=== PATIENT | female | born 1995 | race Caucasian/White ===

== ENCOUNTER 2017-03-20 14:34 | Emergency (ER) | payer OTHER ==
[2017-03-20 14:38] VITALS: TEMP 99
[2017-03-20] MEDS ORDERED: ONDANSETRON 4 MG/2 ML VIAL IVP STA (14:53)
[2017-03-20] MEDS ORDERED: HYDROmorphone 1 MG/ML 1 ML SYRINGE IVP STA (14:53)
[2017-03-20] MEDS ORDERED: SODIUM CHLORIDE 0.9% 1,000 ML IV STA ×2 (14:53)
--- NOTE | 2017-03-20 14:55 | ED ---
General Adult HPI - General Chief complaint: Abdominal Pain Stated complaint: right side abd pain Time Seen by Provider: 03/20/17 14:46 Source: patient, RN notes reviewed Mode of arrival: ambulatory Limitations: no limitations - History of Present Illness Initial comments: Patient 21-year-old female who presents emergency room today with chief complaint of increased right upper quadrant pain over the last day. Doesn't that symptoms started last night around 11 PM. Does admit that it as a "sharp" type pain. Currently rates an 8/10 located in the right upper quadrant. Does admit that she's currently on antibiotic of Bactrim for urinary tract infection that she was placed on one week ago. She states she went back to urgent care today and advised her to come here to the emergency room for further evaluation of her gallbladder. Patient denies any other complaints or symptoms at this time. Denies anything that seems to make it better or worse. Patient denies any recent fever, chills, shortness of breath, chest pain, back pain, nausea or vomiting, numbness or tingling, dysuria or hematuria, constipation or diarrhea, headaches or visual changes, or any other complaints. - Related Data Home Medications Medication Instructions Recorded Confirmed Acetaminophen Tab [Tylenol Tab] 650 mg PO Q6H PRN 03/20/17 03/20/17 Etonogestrel [Nexplanon ( 68 mg IM ONCE 03/20/17 03/20/17 control implant)] Sulfamethoxazole/Trimethoprim 1 tab PO BID 03/20/17 03/20/17 [Bactrim DS 800-160 mg] Previous Rx's Medication Instructions Recorded Omeprazole [PriLOSEC] 20 mg PO AC-BRKFST 14 Days 03/20/17 Ondansetron Odt [Zofran ODT] 4 mg PO Q8HR PRN #20 tab 03/20/17 Allergies Allergy/AdvReac Type Severity Reaction Status Date / Time amoxicillin Allergy Rash/Hives Verified 03/20/17 14:47 Penicillins Allergy Rash/Hives Verified 03/20/17 14:47 gluten AdvReac Unknown Verified 03/20/17 14:47 Review of Systems ROS Statement: Those systems with pertinent positive or pertinent negative responses have been documented in the HPI. ROS Other: All systems not noted in ROS Statement are negative. Past Medical History Past Medical History: No Reported History History of Any Multi-Drug Resistant Organisms: None Reported Past Surgical History: Section Past Psychological History: No Psychological Hx Reported Smoking Status: Current every day smoker Past Alcohol Use History: Occasional Past Drug Use History: Marijuana General Exam - General Exam Comments Initial Comments: General: The patient is awake and alert, in no distress, and does not appear acutely ill. Eye: Pupils are equal, round and reactive to light, extra-ocular movements are intact. No nystagmus. There is normal conjunctiva bilaterally. No signs of icterus. Ears, nose, mouth and throat: There are moist mucous membranes and no oral lesions. Neck: The neck is supple, there is no tenderness or JVD. Cardiovascular: There is a regular rate and rhythm. No murmur, rub or gallop is appreciated. Respiratory: Lungs are clear to auscultation, respirations are non-labored, breath sounds are equal. No wheezes, stridor, rales, or rhonchi. Gastrointestinal: Normal appearance of the abdomen. Normal bowel sounds. Abdomen soft on palpation. Patient does have tenderness in right upper quadrant. No rebound tenderness. No guarding. No CVA tenderness. Musculoskeletal: Normal ROM, no tenderness. Strength 5/5. Sensation intact. Pulses equal bilaterally 2+. Neurological: A&O x 3. CN II-XII intact, There are no obvious motor or sensory deficits. Coordination appears grossly intact. Speech is normal. Skin: Skin is warm and dry and no rashes or lesions are noted. Psychiatric: Cooperative, appropriate mood & affect, normal judgment. Limitations: no limitations Course Vital Signs 03/20/17 03/20/17 14:36 16:14 Temperature 99.0 F Pulse Rate 98 94 Respiratory 20 18 Rate Blood Pressure 138/76 134/78 O2 Sat by Pulse 99 99 Oximetry Medical Decision Making - Medical Decision Making Patient reexamined at this time shows no signs of distress. She does admit that she is feeling better after pain medicine. Patient's labs been reviewed shows 11,000 white count. No other sign of infection. Urinalysis clear no sign of infection. Patient has been on antibiotics of Bactrim to cover for UTI recently. Her ultrasound shows no evidence of gallstones. Shows no evidence for acute cholecystitis. Common bile duct was within normal limits. Does show prominent right kidney with no evidence of hydronephrosis. At this time patient will be treated for her symptoms advised follow-up family doctor. She states she's due to the area and will be given family doctor on-call all along with GI. Advised patient that could follow-up for possible HIDA scan of the gallbladder continue to rule it out. Advised return if any symptoms increase or worsen. States understanding and is in agreement. - Lab Data Result diagrams: 03/20/17 15:05 03/20/17 15:05 Lab Results 03/20/17 03/20/17 03/20/17 Range/Units 15:05 15:05 15:05 WBC 11.0 H (3.8-10.6) k/uL RBC 4.26 (3.80-5.40) m/uL Hgb 13.3 (11.4-16.0) gm/dL Hct 40.7 (34.0-46.0) % MCV 95.4 (80.0-100.0) fL MCH 31.2 (25.0-35.0) pg MCHC 32.7 (31.0-37.0) g/dL RDW 12.8 (11.5-15.5) % Plt Count 253 (150-450) k/uL Neutrophils % 67 % Lymphocytes % 24 % Monocytes % 5 % Eosinophils % 1 % Basophils % 1 % Neutrophils # 7.4 (1.3-7.7) k/uL Lymphocytes # 2.6 (1.0-4.8) k/uL Monocytes # 0.6 (0-1.0) k/uL Eosinophils # 0.1 (0-0.7) k/uL Basophils # 0.1 (0-0.2) k/uL Sodium 141 (137-145) mmol/L Potassium 3.8 (3.5-5.1) mmol/L Chloride 107 (98-107) mmol/L Carbon Dioxide 24 (22-30) mmol/L Anion Gap 10 mmol/L BUN 6 L (7-17) mg/dL Creatinine 0.63 (0.52-1.04) mg/dL Est GFR (MDRD) Af Amer >60 (>60 ml/min/1.73 sqM) Est GFR (MDRD) Non-Af >60 (>60 ml/min/1.73 sqM) Glucose 103 H (74-99) mg/dL Calcium 9.8 (8.4-10.2) mg/dL Total Bilirubin 0.5 (0.2-1.3) mg/dL AST 19 (14-36) U/L ALT 23 (9-52) U/L Alkaline Phosphatase 66 (38-126) U/L Total Protein 7.9 (6.3-8.2) g/dL Albumin 4.6 (3.5-5.0) g/dL Amylase 50 (30-110) U/L Lipase 136 (23-300) U/L Urine Color Urine Appearance (Clear) Urine pH (5.0-8.0) Ur Specific [place] (1.001-1.035) Urine Protein (Negative) Urine Glucose (UA) (Negative) Urine Ketones (Negative) Urine Blood (Negative) Urine Nitrite (Negative) Urine Bilirubin (Negative) Urine Urobilinogen (<2.0) mg/dL Ur Leukocyte Esterase (Negative) Urine HCG, Qual Not Detected (Not Detectd) 03/20/17 Range/Units 15:05 WBC (3.8-10.6) k/uL RBC (3.80-5.40) m/uL Hgb (11.4-16.0) gm/dL Hct (34.0-46.0) % MCV (80.0-100.0) fL MCH (25.0-35.0) pg MCHC (31.0-37.0) g/dL RDW (11.5-15.5) % Plt Count (150-450) k/uL Neutrophils % % Lymphocytes % % Monocytes % % Eosinophils % % Basophils % % Neutrophils # (1.3-7.7) k/uL Lymphocytes # (1.0-4.8) k/uL Monocytes # (0-1.0) k/uL Eosinophils # (0-0.7) k/uL Basophils # (0-0.2) k/uL Sodium (137-145) mmol/L Potassium (3.5-5.1) mmol/L Chloride (98-107) mmol/L Carbon Dioxide (22-30) mmol/L Anion Gap mmol/L BUN (7-17) mg/dL Creatinine (0.52-1.04) mg/dL Est GFR (MDRD) Af Amer (>60 ml/min/1.73 sqM) Est GFR (MDRD) Non-Af (>60 ml/min/1.73 sqM) Glucose (74-99) mg/dL Calcium (8.4-10.2) mg/dL Total Bilirubin (0.2-1.3) mg/dL AST (14-36) U/L ALT (9-52) U/L Alkaline Phosphatase (38-126) U/L Total Protein (6.3-8.2) g/dL Albumin (3.5-5.0) g/dL Amylase (30-110) U/L Lipase (23-300) U/L Urine Color Yellow Urine Appearance Clear (Clear) Urine pH 6.0 (5.0-8.0) Ur Specific [place] 1.019 (1.001-1.035) Urine Protein Trace H (Negative) Urine Glucose (UA) Negative (Negative) Urine Ketones Negative (Negative) Urine Blood Negative (Negative) Urine Nitrite Negative (Negative) Urine Bilirubin Negative (Negative) Urine Urobilinogen <2.0 (<2.0) mg/dL Ur Leukocyte Esterase Negative (Negative) Urine HCG, Qual (Not Detectd) Disposition Clinical Impression: Abdominal pain Disposition: TRANSFER TO PSYCH HOSP/UNIT Condition: Good Instructions: Abdominal Pain (ED) Additional Instructions: Please use medication as discussed. Please follow-up with family doctor in the next 2 days of symptoms have not improved. Please return to emergency room if the symptoms increase or worsen or for any other concerns. Prescriptions: Omeprazole [PriLOSEC] 20 mg PO AC-BRKFST 14 Days Ondansetron Odt [Zofran ODT] 4 mg PO Q8HR PRN #20 tab PRN Reason: Nausea Referrals: None,Stated [Primary Care Provider] - 1-2 days Oscar Vigil DO [STAFF PHYSICIAN] - 1-2 days Devan Gonzales MD [STAFF PHYSICIAN] - 1-2 days Time of Disposition: 16:23
[2017-03-20 15:24] LABS: Basophils # (A) 0.1 k/uL (0-0.2); Basophils % (A) 1 %; CH 31.1; CHCM 32.7; Eosinophils # (A) 0.1 k/uL (0-0.7); Eosinophils % (A) 1 %; HCT 40.7 % (34.0-46.0); HDW 2.11; HGB 13.3 gm/dL (11.4-16.0); Luc # (Auto) 0.19; Luc % (Auto) 2; Lymphocytes # (A) 2.6 k/uL (1.0-4.8); Lymphocytes % (A) 24 %; MCH 31.2 pg (25.0-35.0); MCHC 32.7 g/dL (31.0-37.0); MCV 95.4 fL (80.0-100.0); Mean Platelet Volume 7.2; Monocytes # (A) 0.6 k/uL (0-1.0); Monocytes % (A) 5 %; Neutrophils # (A) 7.4 k/uL (1.3-7.7); Neutrophils % (A) 67 %; RBC 4.26 m/uL (3.80-5.40); RDW 12.8 % (11.5-15.5); WBC (Perox) 11.04
[2017-03-20 15:34] LABS: ALT 23 U/L (9-52); AST 19 U/L (14-36); Alkaline Phosphatase 66 U/L (38-126); Amylase 50 U/L (30-110); Anion Gap 10 mmol/L; Blood Urea Nitrogen 6 mg/dL (7-17); Calcium 9.8 mg/dL (8.4-10.2); Carbon Dioxide 24 mmol/L (22-30); Chloride 107 mmol/L (98-107); Glucose 103 mg/dL (74-99); Non-African American GFR(MDRD) >60 (>60 ml/min/1.73 sqM); Potassium 3.8 mmol/L (3.5-5.1); Sodium 141 mmol/L (137-145); Total Bilirubin 0.5 mg/dL (0.2-1.3); Total Protein 7.9 g/dL (6.3-8.2)
[2017-03-20 15:36] LABS: Appearance,Urine Clear (Clear); Bilirubin,Urine Negative (Negative); Glucose,Urine (UA) Negative (Negative); Ketones,Urine Negative (Negative); Leukocyte Esterase,Urine Negative (Negative); Nitrite,Urine Negative (Negative); Protein,Urine Trace (Negative); Specific Gravity,Urine 1.019 (1.001-1.035); UA Billing (MACRO vs. MICRO) CHEM; Urobilinogen,Urine <2.0 mg/dL (<2.0)
--- NOTE | 2017-03-20 16:00 | US ---
EXAMINATION TYPE: US abdomen limited DATE OF EXAM: 03/20/2017 3:38 PM COMPARISON: NONE CLINICAL HISTORY: Pain. Right sided abdominal pain, history of kidney infection EXAM MEASUREMENTS: Liver Length: 17.8 cm Gallbladder Wall: 0.2 cm CBD: 0.3 cm Right Kidney: 13.0 x 3.8 x 4.5 cm *Technical limitations due to large amount of overlying bowel content Pancreas: Obscured by bowel gas Liver: Normal echotexture. Few hepatic cysts are incidentally noted with increased through transmis blue and a well-defined posterior wall. Gallbladder: no evidence of stones Evidence for sonographic Jaime's sign: Yes CBD: appears wnl measuring 3 mm. Right Kidney: enlarged IMPRESSION: 1. Prominent in size of the right kidney with no evidence of hydronephrosis or nephrolithiasis. 2. Unremarkable gallbladder with no sonographic evidence of cholecystitis.
[2017-03-20 16:15] VITALS: BP 134/78; PULSE 94; RESP 18
[2017-03-20] MEDS ORDERED: KETOROLAC 30 MG/ML 1 ML VIAL IVP STA (16:25)
== END 2017-03-20 16:55 | disposition home or self-care (01) ==
LOC: EC 14:34
DX: R10.11 Right upper quadrant pain (principal); F17.200 Nicotine dependence, unspecified, uncomplicated; Z88.0 Allergy status to penicillin; Z91.018 Allergy to other foods; Z79.3 Long term (current) use of hormonal contraceptives; Z79.899 Other long term (current) drug therapy
CPT/HCPCS: 99284 ×2; 96374 ×2; 96375 ×3; 96361 ×2; 36415; 80053; 82150; 83690; 85025; 81003; 81025; 87086; 76705; J2405; J1885; J1170

== ENCOUNTER 2018-03-07 17:46 | Emergency (ER) | payer OTHER, BC ==
[2018-03-07 17:55] VITALS: BP 131/81; PULSE 77; RESP 16; TEMP 98.6
--- NOTE | 2018-03-07 19:41 | ED ---
Skin/Abscess/FB HPI - General Chief complaint: Skin/Abscess/Foreign Body Stated complaint: Allergic reaction on hip Time Seen by Provider: 03/07/18 19:24 Source: patient, RN notes reviewed Mode of arrival: ambulatory Limitations: no limitations - History of Present Illness Initial comments: This is a 22-year-old female presents emergency department complaining of itching over a tattoo which she got in her right pelvic area about one week ago. Patient has been treating tattoo with intermittent ointment and has been keeping it covered with an occlusive dressing with saran wrap and adhesive tape. She has itching area where the adhesive tape was. Patient denies fever chills. Patient states she's had previous tattoos but never reacted like this before. Patient denies any discharge. Patient denies any other symptomology. No shortness of breath or throat symptoms. No rashes elsewhere. No chance of . - Related Data Home Medications Medication Instructions Recorded Confirmed Acetaminophen Tab [Tylenol Tab] 650 mg PO Q6H PRN 03/20/17 03/20/17 Etonogestrel [Nexplanon ( 68 mg IM ONCE 03/20/17 03/20/17 control implant)] Sulfamethoxazole/Trimethoprim 1 tab PO BID 03/20/17 03/20/17 [Bactrim DS 800-160 mg] Previous Rx's Medication Instructions Recorded Omeprazole [PriLOSEC] 20 mg PO AC-BRKFST 14 Days cap 03/20/17 Ondansetron Odt [Zofran ODT] 4 mg PO Q8HR PRN #20 tab 03/20/17 predniSONE 50 mg PO DAILY #4 tab 03/07/18 Allergies Allergy/AdvReac Type Severity Reaction Status Date / Time amoxicillin Allergy Rash/Hives Verified 03/07/18 17:55 Penicillins Allergy Rash/Hives Verified 03/07/18 17:55 gluten AdvReac Unknown Verified 03/07/18 17:55 Review of Systems ROS Statement: Those systems with pertinent positive or pertinent negative responses have been documented in the HPI. ROS Other: All systems not noted in ROS Statement are negative. Past Medical History Past Medical History: No Reported History History of Any Multi-Drug Resistant Organisms: None Reported Past Surgical History: Section Past Psychological History: No Psychological Hx Reported Smoking Status: Current every day smoker Past Alcohol Use History: Occasional Past Drug Use History: Marijuana General Exam - General Exam Comments Initial Comments: Thin but healthy-appearing 22-year-old female in no distress Limitations: no limitations General appearance: alert, in no apparent distress Head exam: Present: atraumatic, normocephalic, normal inspection Eye exam: Present: normal appearance, EOMI ENT exam: Present: normal exam, mucous membranes moist Neck exam: Present: normal inspection. Absent: tenderness, meningismus, lymphadenopathy Respiratory exam: Present: normal lung sounds bilaterally. Absent: respiratory distress, wheezes, rales, rhonchi, stridor Cardiovascular Exam: Present: regular rate, normal rhythm, normal heart sounds. Absent: systolic murmur, diastolic murmur, rubs, gallop, clicks GI/Abdominal exam: Present: soft, distended Extremities exam: Present: normal inspection, full ROM, normal capillary refill. Absent: tenderness, pedal edema, joint swelling, calf tenderness Back exam: Present: normal inspection Neurological exam: Present: alert, oriented X3, CN II-XII intact. Absent: motor sensory deficit Psychiatric exam: Present: normal affect, normal mood Skin exam: Present: rash (Patient has a scaling eruption overlying tattoo in her right groin which is consistent with contact dermatitis. Patient does have some linear vesicle eruption. No evidence of secondary infection.) Course Vital Signs 03/07/18 17:53 Temperature 98.6 F Pulse Rate 77 Respiratory 16 Rate Blood Pressure 131/81 O2 Sat by Pulse 98 Oximetry Disposition Clinical Impression: Contact dermatitis Disposition: HOME SELF-CARE Condition: Good Instructions: Contact Dermatitis (ED) Additional Instructions: Use [id number] anti-ointment as directed by the lithographic artist. Do not put anymore adhesive over the area of the tattoo. Use [id number] Benadryl as directed on the bottle for itching. Prescriptions: predniSONE 50 mg PO DAILY #4 tab Referrals: Joe Angel MD [STAFF PHYSICIAN] - 03/13/18 Time of Disposition: 19:31
== END 2018-03-07 19:53 | disposition home or self-care (01) ==
LOC: EC 17:46
DX: L25.9 Unspecified contact dermatitis, unspecified cause (principal); F17.200 Nicotine dependence, unspecified, uncomplicated; Z79.3 Long term (current) use of hormonal contraceptives; Z88.0 Allergy status to penicillin; Z91.048 Other nonmedicinal substance allergy status
CPT/HCPCS: 99283

== ENCOUNTER 2018-07-30 06:50 | Emergency (ER) | payer OTHER, BC ==
[2018-07-30 06:58] VITALS: BP 118/75; PULSE 102; RESP 20; TEMP 98.5
--- NOTE | 2018-07-30 07:28 | ED ---
General Adult HPI - General Chief complaint: Dental/Oral Stated complaint: dental pain/eye problem Time Seen by Provider: 07/30/18 07:00 Source: patient, RN notes reviewed Mode of arrival: ambulatory Limitations: no limitations - History of Present Illness Initial comments: This is a 22-year-old female presents emergency department stating she checked her molar on the right side. Patient states one of 2 days. Patient states she' s been taking Motrin but is not helping for very long. Patient slightly taken 40 mg smoke. Patient denies any fever chills. Patient has noticed some redness around the tooth but there is no area of swelling or drainage. - Related Data Previous Rx's Medication Instructions Recorded Amoxicillin 500 mg PO Q8H #30 capsule 07/30/18 Ibuprofen [Motrin] 600 mg PO Q6HR PRN #20 tab 07/30/18 traMADol HCL [Ultram] 50 mg PO Q6HR PRN 3 Days #10 tab 07/30/18 Allergies Allergy/AdvReac Type Severity Reaction Status Date / Time amoxicillin Allergy Rash/Hives Verified 07/30/18 06:58 Penicillins Allergy Rash/Hives Verified 07/30/18 06:58 gluten AdvReac Unknown Verified 07/30/18 06:58 Review of Systems ROS Statement: Those systems with pertinent positive or pertinent negative responses have been documented in the HPI. ROS Other: All systems not noted in ROS Statement are negative. Past Medical History Past Medical History: No Reported History History of Any Multi-Drug Resistant Organisms: None Reported Past Surgical History: Section Past Psychological History: No Psychological Hx Reported Smoking Status: Current every day smoker Past Alcohol Use History: Occasional Past Drug Use History: Marijuana General Exam - General Exam Comments Initial Comments: GENERAL Patient is well-developed and well-nourished. Patient is in mild distress. EYES Patient's pupils are equal and round. Extraocular motion is intact MOUTH Patient's molar on the bottom right is chipped and tender to palpation. No abscesses noted SKIN Unremarkable NEURO The patient is alert and oriented 3 PYSCH Patient has normal interpersonal interactions. MUSCULOSKELETAL All 4 extremities and full range of motion Limitations: no limitations Course Vital Signs 07/30/18 06:55 Temperature 98.5 F Pulse Rate 102 H Respiratory 20 Rate Blood Pressure 118/75 O2 Sat by Pulse 99 Oximetry Disposition Clinical Impression: Pain, dental Disposition: HOME SELF-CARE Condition: Good Instructions: Toothache (ED) Prescriptions: Amoxicillin 500 mg PO Q8H #30 capsule Ibuprofen [Motrin] 600 mg PO Q6HR PRN #20 tab PRN Reason: For pain traMADol HCL [Ultram] 50 mg PO Q6HR PRN 3 Days #10 tab PRN Reason: Pain Is patient prescribed a controlled substance at d/c from ED?: Yes When asked, does pt state using other controlled substances?: No If prescribed controlled substance>3 days was MAPS reviewed?: Prescribed <3 Days If opioid is for acute pain is fill amount 7 days or less?: Yes If Rx opioid, was Start Talking consent form obtained?: No Referrals: None,Stated [Primary Care Provider] - 1-2 days Time of Disposition: 07:25
== END 2018-07-30 07:35 | disposition home or self-care (01) ==
LOC: EC 06:50
DX: K08.89 Other specified disorders of teeth and supporting structures (principal); F17.200 Nicotine dependence, unspecified, uncomplicated; Z88.0 Allergy status to penicillin; Z91.018 Allergy to other foods
CPT/HCPCS: 99282

== ENCOUNTER 2019-03-11 16:56 | Emergency (ER) | payer OTHER, BC ==
[2019-03-11 17:04] VITALS: BP 131/87; PULSE 98; RESP 18; TEMP 98.1
[2019-03-11] MEDS ORDERED: HYDROcodone/APAP 7.5-325MG 1 EACH TAB PO ONE (17:26)
[2019-03-11] MEDS ORDERED: CLINDAMYCIN 150 MG CAP PO STA (17:26)
--- NOTE | 2019-03-11 17:57 | ED ---
General Adult HPI - General Chief complaint: Dental/Oral Stated complaint: dental pain Time Seen by Provider: 03/11/19 17:14 Source: patient, RN notes reviewed, old records reviewed Mode of arrival: ambulatory Limitations: no limitations - History of Present Illness Initial comments: 23-year-old female patient with past medical history of poor dentition presents to ED with approximate 4 days of pain in her right lower jaw. Patient reports it is similar to dental infection she has had in the past. Patient was seen yesterday at urgent care shows problem, prescribed antibiotics. Patient reports she has not picked up her prescription antibiotics yet. Patient reported that she primarly presents today for pain control. Patient denies any other compl aints. Patient states that she is not . Patient denies fevers chills, nausea vomiting diarrhea. Systemic: Pt denies fatigue, myalgia, fever/chills, rash. Pt denies weakness, night sweats, weight loss. Neuro: Pt denies headache, visual disturbances, syncope or pre-syncope. HEENT: Pt denies ocular discharge or irritation, otalgia, rhinorrhea, pharyngitis or notable lymphadenopathy. Cardiopulmonary: Pt denies chest pain, SOB, heart palpitations, dyspnea on exertion. Abdominal/GI: Pt denies abdominal pain, n/v/d. : Pt denies dysuria, burning w/ urination, frequency/urgency. Denies new onset urinary or bowel incontinence. MSK: Pt denies myalgia, loss of strength or function in extremities. Neuro: Pt denies new onset weakness, paresthesias. - Related Data Previous Rx's Medication Instructions Recorded Amoxicillin 500 mg PO Q8H #30 capsule 07/30/18 Ibuprofen [Motrin] 600 mg PO Q6HR PRN #20 tab 07/30/18 traMADol HCL [Ultram] 50 mg PO Q6HR PRN 3 Days #10 tab 07/30/18 Clindamycin [Cleocin] 450 mg PO Q8HR 7 Days capsule 03/11/19 Allergies Allergy/AdvReac Type Severity Reaction Status Date / Time amoxicillin Allergy Rash/Hives Verified 03/11/19 17:04 Penicillins Allergy Rash/Hives Verified 03/11/19 17:04 gluten AdvReac Unknown Verified 03/11/19 17:04 Review of Systems ROS Statement: Those systems with pertinent positive or pertinent negative responses have been documented in the HPI. ROS Other: All systems not noted in ROS Statement are negative. Past Medical History Past Medical History: No Reported History History of Any Multi-Drug Resistant Organisms: None Reported Past Surgical History: Section Past Psychological History: No Psychological Hx Reported Smoking Status: Current every day smoker Past Alcohol Use History: Occasional Past Drug Use History: Marijuana General Exam - General Exam Comments Initial Comments: Constitutional: NAD, AOX3, Pt has pleasant affect. HEENT: NC/AT, trachea midline, neck supple, no lymphadenopathy. Posterior pharynx non erythematous, without exudates. External ears appear normal, without discharge. Mucous membranes moist. Eyes PERRLA, EOM intact. There is no scleral icterus. No pallor noted. Full active range of motion of jaw. Dental exam revealed mild erythema and dental ashley at 32nd tooth. No fluctuance, no abscess. Cardiopulmonary: RRR, no murmurs, rubs or gallops, no JVD noted. Lungs CTAB in anterior and posterior lazo. No peripheral edema. Abdominal exam: Abdomen soft and non-distended. Abdomen non-tender to palpation in all 4 quadrants. Bowel sounds active in LLQ. No hepatosplenomegaly. No ecchymosis Neuro: CN II-XII grossly intact. No nuchal rigidity. MSK: No posterior calf tenderness bilaterally, homans sign negative bilaterally. Posterior tibialis and radial pulse +2 bilaterally. Sensation intact in upper and lower extremities. Full active ROM in upper and lower extremities, 5/5 stregnth. Limitations: no limitations Course Vital Signs 03/11/19 17:02 Temperature 98.1 F Pulse Rate 98 Respiratory 18 Rate Blood Pressure 131/87 O2 Sat by Pulse 100 Oximetry Medical Decision Making - Medical Decision Making 23-year-old female patient with past medical history of poor dentition presents to ED with approximate 4 days of pain in her right lower jaw. Patient reports it is similar to dental infection she has had in the past. Patient was seen yesterday at urgent care shows problem, prescribed antibiotics. Patient reports she has not picked up her prescription antibiotics yet. Patient reported that she primarly presents today for pain control. Patient denies any other complaints. Patient states that she is not . Patient denies fevers chills, nausea vomiting diarrhea. Pt VSS, afebrile. Physical exam displayed: Full active range of motion of jaw. Dental exam revealed mild erythema and dental ashley at 32nd tooth. No fluctuance, no abscess. Patient administered 1 dose of pain medication ED. Patient administered one dose of antibiotic in ED. Patient no driving home. Patient prescribed 7 days of clindamycin. Patient has penicillin ALLERGY. A repeat questioning patient again states that she is not . Patient will follow-up with dentist approximately 3 days. Patient has established appointment. Patient return if patient worsens anyway. Case discussed with Dr. Rebolledo. Disposition Clinical Impression: Pain, dental, Dental infection Disposition: HOME SELF-CARE Condition: Stable Instructions (If sedation given, give patient instructions): Toothache (ED) Additional Instructions: Patient to adhere to previously discussed treatment plan and will take medication(s) as directed. Patient to follow up with PCP in 1-2 days. Patient to return to ED if symptoms do not improve. Please use medications as directed. Please use ibuprofen and Tylenol at home for pain. Please follow-up with dentist as scheduled. Please return to ER if condition worsens in any way. Prescriptions: Clindamycin [Cleocin] 450 mg PO Q8HR 7 Days capsule Is patient prescribed a controlled substance at d/c from ED?: No Referrals: None,Stated [Primary Care Provider] - 1-2 days [facility] - 1-2 days
== END 2019-03-11 18:02 | disposition home or self-care (01) ==
LOC: EC 16:56
DX: K04.7 Periapical abscess without sinus (principal); K02.9 Dental caries, unspecified; Z88.0 Allergy status to penicillin; F17.200 Nicotine dependence, unspecified, uncomplicated; Z91.018 Allergy to other foods
CPT/HCPCS: 99283

== ENCOUNTER 2019-06-01 13:05 | Emergency (ER) | payer OTHER, BC ==
[2019-06-01 13:26] VITALS: BP 154/88; PULSE 100; RESP 18; TEMP 99.7
[2019-06-01] MEDS ORDERED: CLINDAMYCIN 150 MG CAP PO STA (13:43)
[2019-06-01] MEDS ORDERED: ACET/COD 300 MG/30 MG STARTER PACK 6 TAB BTL PO STA (13:43)
[2019-06-01] MEDS ORDERED: Acetaminophen-Codeine 300-30mg TAB PO STA (13:43)
--- NOTE | 2019-06-01 13:43 | ED ---
Wound/Laceration HPI - General Chief Complaint: Wound/Laceration Stated Complaint: Knee Laceration Source: patient, RN notes reviewed, old records reviewed Mode of arrival: ambulatory Limitations: no limitations - History of Present Illness Initial Comments: This is a 20-year-old female the ER for evaluation. Patient has multiple complaints currently. Patient's complaints dry throughout both dental pain as well as knee injury she had knee injury yesterday with mild laceration. Patient has no other significant complaints. She states the main complaint is that her tooth feels like his broken she does have history of dental caries. No fevers. No difficulty swallowing. -: days(s) Extremity Location: Right: Knee Place: home Patient Tetanus UTD: Yes Context: fall Associated Symptoms: none - Related Data Previous Rx's Medication Instructions Recorded Amoxicillin 500 mg PO Q8H #30 capsule 07/30/18 Ibuprofen [Motrin] 600 mg PO Q6HR PRN #20 tab 07/30/18 traMADol HCL [Ultram] 50 mg PO Q6HR PRN 3 Days #10 tab 07/30/18 Clindamycin [Cleocin] 450 mg PO Q8HR 7 Days capsule 03/11/19 Clindamycin HCl [Cleocin] 300 mg PO Q6HR #40 cap 06/01/19 Allergies Allergy/AdvReac Type Severity Reaction Status Date / Time amoxicillin Allergy Rash/Hives Verified 06/01/19 13:26 Penicillins Allergy Rash/Hives Verified 06/01/19 13:26 gluten AdvReac Unknown Verified 06/01/19 13:26 Review of Systems ROS Statement: Those systems with pertinent positive or pertinent negative responses have been documented in the HPI. ROS Other: All systems not noted in ROS Statement are negative. Past Medical History Past Medical History: No Reported History History of Any Multi-Drug Resistant Organisms: None Reported Past Surgical History: Section Past Psychological History: No Psychological Hx Reported Smoking Status: Current every day smoker Past Alcohol Use History: Occasional Past Drug Use History: Marijuana General Exam - General Exam Comments Initial Comments: Minor laceration of right knee, no gaping, 3 cm General appearance: alert, in no apparent distress Head exam: Present: atraumatic, normocephalic, normal inspection Eye exam: Present: normal appearance, PERRL, EOMI. Absent: scleral icterus, conjunctival injection, periorbital swelling ENT exam: Present: normal exam, mucous membranes moist Neck exam: Present: normal inspection. Absent: tenderness, meningismus, lymphadenopathy Respiratory exam: Present: normal lung sounds bilaterally. Absent: respiratory distress, wheezes, rales, rhonchi, stridor Cardiovascular Exam: Present: regular rate, normal rhythm, normal heart sounds. Absent: systolic murmur, diastolic murmur, rubs, gallop, clicks GI/Abdominal exam: Present: soft, normal bowel sounds. Absent: distended, tenderness, guarding, rebound, rigid Extremities exam: Present: normal inspection, full ROM, normal capillary refill. Absent: tenderness, pedal edema, joint swelling, calf tenderness Back exam: Present: normal inspection Neurological exam: Present: alert, oriented X3, CN II-XII intact Psychiatric exam: Present: normal affect, normal mood Skin exam: Present: warm, dry, intact, normal color. Absent: rash Course Vital Signs 06/01/19 13:22 Temperature 99.7 F H Pulse Rate 100 Respiratory 18 Rate Blood Pressure 154/88 O2 Sat by Pulse 99 Oximetry Procedures - Laceration Laceration #1 Consent Obtained: verbal consent Indication: laceration Site: lower extremity (Right knee) Size (cm): 3 Description: linear Size of Sutures: other (Dermabond) Patient Tolerated Procedure: well Medical Decision Making - Medical Decision Making 23 female the ER for evaluation. Patient does have Dermabond placed laceration, patient given antibiotics and pain control for tooth Disposition Clinical Impression: Laceration, Laceration of right knee, Dental abscess Disposition: HOME SELF-CARE Instructions (If sedation given, give patient instructions): Laceration (ED), Dental Abscess (ED) Prescriptions: Clindamycin HCl [Cleocin] 300 mg PO Q6HR #40 cap Is patient prescribed a controlled substance at d/c from ED?: No Referrals: None,Stated [REFERRING] - 1-2 days
== END 2019-06-01 14:03 | disposition home or self-care (01) ==
LOC: EC 13:05
DX: S81.011A Laceration without foreign body, right knee, initial encounter (principal); K04.7 Periapical abscess without sinus; F17.200 Nicotine dependence, unspecified, uncomplicated; Z88.0 Allergy status to penicillin; Z91.018 Allergy to other foods; W25.XXXA Contact with sharp glass, initial encounter; W19.XXXA Unspecified fall, initial encounter; Y93.39 Activity, other involving climbing, rappelling and jumping off
CPT/HCPCS: 12002; 99283

== ENCOUNTER → 2020-06-23 | Outpatient (CLI) | payer OTHER | END | disposition home or self-care (01) | LOC: LABWHC1 09:21 | PROVIDERS: ATTEND Family Medicine | DX: Z03.818 Encounter for observation for suspected exposure to other biological agents ruled out (principal); U07.1 COVID-19 | CPT/HCPCS: U0003; C9803 ==

== ENCOUNTER 2021-02-11 21:34 | Emergency (ER) | payer BC, OTHER ==
[2021-02-11] MEDS ORDERED: FAMOTIDINE 20 MG/2 ML VIAL IV STA (21:50)
[2021-02-11] MEDS ORDERED: SODIUM CHLORIDE 0.9% 1,000 ML IV STA (21:50)
[2021-02-11] MEDS ORDERED: methylPREDNISolone SOD SUCCI 125 MG/2 ML VIAL IV STA (21:50)
[2021-02-11] MEDS ORDERED: diphenhydrAMINE 50 MG/ML 1 ML VIAL IVP STA (21:50)
--- NOTE | 2021-02-11 21:54 | ED ---
Allergic Reaction HPI - General Chief complaint: Allergic Reaction Stated complaint: Alergic reaction, HALIE Time Seen by Provider: 02/11/21 21:45 Source: patient, RN notes reviewed Mode of arrival: ambulatory Limitations: no limitations - History of Present Illness Initial Comments: Patient is a 25-year-old female that presents to emergency department for ALLERGIC reaction. She noted that she ate some fish for dinner and then started breaking out hives all over her body. She notes that it is itchy. She notes that her chest feels slightly tight but she is having no difficulty breathing. She noted this the first dose ever happened as she has eaten fish in the past with no reaction. She was in moderate distress and no pain while sitting up in bed during exam and review. She did note that she tried taking some children's Benadryl before coming in that did not help at all. She denied any shortness of breath headache nausea vomiting diarrhea constipation fever fatigue chills. - Related Data Previous Rx's Medication Instructions Recorded Amoxicillin 500 mg PO Q8H #30 capsule 07/30/18 Ibuprofen [Motrin] 600 mg PO Q6HR PRN #20 tab 07/30/18 traMADol HCL [Ultram] 50 mg PO Q6HR PRN 3 Days #10 tab 07/30/18 Clindamycin [Cleocin] 450 mg PO Q8HR 7 Days capsule 03/11/19 clindamycin HCL [Cleocin] 300 mg PO Q6HR #40 cap 06/01/19 Allergies Allergy/AdvReac Type Severity Reaction Status Date / Time amoxicillin Allergy Rash/Hives Verified 02/11/21 21:40 Fish Containing Products Allergy Dyspnea Verified 02/11/21 21:40 [Fish] Penicillins Allergy Rash/Hives Verified 02/11/21 21:40 gluten AdvReac Unknown Verified 02/11/21 21:40 Review of Systems ROS Statement: Those systems with pertinent positive or pertinent negative responses have been documented in the HPI. ROS Other: All systems not noted in ROS Statement are negative. Past Medical History Past Medical History: No Reported History History of Any Multi-Drug Resistant Organisms: None Reported Past Surgical History: Section Past Psychological History: No Psychological Hx Reported Smoking Status: Current every day smoker Past Alcohol Use History: Occasional Past Drug Use History: Marijuana General Exam Limitations: no limitations General appearance: alert, in distress Head exam: Present: atraumatic, normocephalic, normal inspection Eye exam: Present: normal appearance, PERRL, EOMI. Absent: scleral icterus, conjunctival injection, periorbital swelling ENT exam: Present: normal exam, mucous membranes moist, other (Bilateral ears are erythematous.) Neck exam: Present: normal inspection. Absent: tenderness, meningismus, lymphadenopathy Respiratory exam: Present: normal lung sounds bilaterally. Absent: respiratory distress, wheezes, rales, rhonchi, stridor Cardiovascular Exam: Present: regular rate, normal rhythm, normal heart sounds. Absent: systolic murmur, diastolic murmur, rubs, gallop, clicks GI/Abdominal exam: Present: soft, normal bowel sounds. Absent: distended, tenderness, guarding, rebound, rigid Extremities exam: Present: normal inspection, full ROM, normal capillary refill. Absent: tenderness, pedal edema, joint swelling, calf tenderness Neurological exam: Present: alert, oriented X3, CN II-XII intact Psychiatric exam: Present: normal affect, normal mood Skin exam: Present: warm, dry, intact, normal color, urticaria. Absent: rash Course Vital Signs 02/11/21 21:37 Temperature 98.0 F Pulse Rate 115 H Respiratory 20 Rate Blood Pressure 148/75 O2 Sat by Pulse 100 Oximetry Medical Decision Making - Medical Decision Making 25-year-old female complaining of ALLERGIC reaction from fish. 1 L normal saline, 50 mg of Benadryl, 20 mg of famotidine, 120 mg of Solu- Medrol, 0.5 mg epi. Patient feeling better. Case discussed with Dr. Jones, patient to discharge home. Disposition Clinical Impression: Allergic reaction, Food allergy Disposition: HOME SELF-CARE Condition: Stable Instructions (If sedation given, give patient instructions): Anaphylaxis (ED) Additional Instructions: Please return to the Emergency Department if symptoms worsen or any other concerns. Follow-up primary care in 2-4 days. Continue take Benadryl every 6-8 hours as needed for symptomatic management. Can use [id number]-[id number] anti-itch cream for itchiness. Is patient prescribed a controlled substance at d/c from ED?: No Referrals: Oliver Lundy MD [Primary Care Provider] - 1-2 days Time of Disposition: 22:48
[2021-02-11 23:24] VITALS: BP 122/68; PULSE 90; RESP 16; TEMP 97.9
== END 2021-02-11 23:00 | disposition home or self-care (01) ==
LOC: EC 21:34
DX: T78.1XXA Other adverse food reactions, not elsewhere classified, initial encounter (principal); L50.0 Allergic urticaria; F17.200 Nicotine dependence, unspecified, uncomplicated; Z88.0 Allergy status to penicillin
CPT/HCPCS: 99284; 96374; 96375; 96372; 96361; J0171; J1200; J2930

== ENCOUNTER → 2021-05-22 | Outpatient (CLI) | payer BC, OTHER ==
[2021-05-22 14:17] LABS: Basophils % (A) 0 %; Eosinophils # (A) 0.3 k/uL (0-0.7); Eosinophils % (A) 3 %; HCT 47.8 % (34.0-46.0); Lymphocytes # (A) 1.9 k/uL (1.0-4.8); Lymphocytes % (A) 18 %; MCH 31.6 pg (25.0-35.0); MCHC 33.5 g/dL (31.0-37.0); MCV 94.4 fL (80.0-100.0); Mean Platelet Volume 7.7; Monocytes # (A) 0.6 k/uL (0-1.0); Monocytes % (A) 6 %; Neutrophils # (A) 7.6 k/uL (1.3-7.7); Neutrophils % (A) 72 %; Platelet Count 300 k/uL (150-450); RBC 5.06 m/uL (3.80-5.40); RDW 12.1 % (11.5-15.5); WBC 10.5 k/uL (3.8-10.6)
[2021-05-22 14:31] LABS: Appearance,Urine Cloudy (Clear); Bacteria,Urine Rare /hpf; Bilirubin,Urine Negative (Negative); Blood,Urine Negative (Negative); Color,Urine Yellow; Glucose,Urine (UA) Negative (Negative); Hyaline Casts,Urine 1 /lpf (0-2); Ketones,Urine Negative (Negative); Leukocyte Esterase,Urine Small (Negative); Mucus,Urine Many /hpf; Nitrite,Urine Negative (Negative); PH, Urine 5.5 (5.0-8.0); Protein,Urine Negative (Negative); RBC,Urine 2 /hpf (0-5); Squamous Epithelial Cell,Urine 6 /hpf (0-4); Urobilinogen,Urine <2.0 mg/dL (<2.0); WBC,Urine 8 /hpf (0-5)
[2021-05-22 14:38] LABS: African American GFR (CKD) >90 (>60 ml/min/1.73 sqM); Anion Gap 9 mmol/L; Blood Urea Nitrogen 6 mg/dL (7-17); Carbon Dioxide 27 mmol/L (22-30); Chloride 105 mmol/L (98-107); Glucose 84 mg/dL (74-99); Non-African American GFR(CKD) >90 (>60 ml/min/1.73 sqM); Potassium 4.2 mmol/L (3.5-5.1); Sodium 141 mmol/L (137-145)
== END | disposition home or self-care (01) ==
LOC: LABWHC1 13:09
PROVIDERS: ATTEND Urology
DX: Z01.812 Encounter for preprocedural laboratory examination (principal); R31.0 Gross hematuria
CPT/HCPCS: 36415; 80048; 81001; 85025; 87086

== ENCOUNTER 2021-05-29 09:40 | Day surgery (SDC) | payer BC, OTHER ==
[2021-05-28 12:22] VITALS: BMI 24.0
[~2021-05-29 09:40] MED LIST: CIPROFLOXACIN/DEXTROSE PMX 400 MG in DEXTROSE/WATER 1 200ML.BAG IVPB ONE; DEXAMETHASONE SOD PHOSPHATE 4 MG/ML 1 ML VIAL IV ONE; HYDROmorphone 0.5 MG/0.5 ML SYRINGE IVP PRN; MIDAZOLAM 2 MG/2 ML VIAL IV PRN; ONDANSETRON 4 MG/2 ML VIAL IVP ONE; SCOPOLAMINE 1.5MG/72HR PATCH TRANSDERM ONE
[2021-05-29] MEDS: LACTATED RINGERS 1,000 ML IV SCH ×2 (10:23→10:58)
--- NOTE | 2021-05-29 10:33 | P.HPIHPCON ---
History of Present Illness H&P Date: 05/29/21 25 yo female with hx of gross hematuria and left flank pain, had CT non contrast done which showed no abnormality or stones within the kidney. Discussed option of doing cystoscopy with bilateral RP. discussed risk of bleeding, infection and ureteral injury. discussed if abnormality is seen on cystoscopy then will do a biopsy at that time. Discussed potential need for ureteroscopy also if abnormality is seen on RP. She understood all risk and agreed to proceed Consent for Procedure: I have explained the operation/procedure to the patient, including the risks, benefits, side effects, alternative therapies (including not receiving the proposed treatment or service), the likelihood of the patient achieving his/her goals, and potential recuperation problems for the procedure/sedation/analgesia, as well as any blood products, if indicated. I also explained to the patient the risks, benefits and side effects of the alternatives, as well as the risks related to not receiving the proposed procedure, care, treatment, or services. Past Medical History Past Medical History: GERD/Reflux, Hypertension Additional Past Medical History / Comment(s): preeclampsia with , no current issues with BP, hx kidney stone, has blood in urine-cause unknown History of Any Multi-Drug Resistant Organisms: None Reported Past Surgical History: Section Past Anesthesia/Blood Transfusion Reactions: Motion Sickness Smoking Status: Current every day smoker - Past Family History Mother Family Medical History: No Reported History Medications and Allergies Home Medications Medication Instructions Recorded Confirmed Type EPINEPHrine (Auto Inject) [Epipen] 0.3 mg IM ONCE PRN 05/28/21 05/28/21 History Medroxyprogesterone Acetate 150 mg IM ONCE 05/28/21 05/28/21 History [Depo-Provera] Allergies Allergy/AdvReac Type Severity Reaction Status Date / Time peanut Allergy Severe Anaphylaxis Verified 05/29/21 10:14 amoxicillin Allergy Rash/Hives Verified 05/29/21 10:14 Penicillins Allergy Rash/Hives Verified 05/29/21 10:14 gluten AdvReac Unknown Verified 05/29/21 10:14 Surgical - Exam - General well developed, well nourished, no distress - ENT normal nares, normal mucosa - Respiratory normal expansion, normal respiratory effort - Abdomen Abdomen: soft, non tender Assessment and Plan Assessment: 25 yo hx of gross hematuria -OR for cysto and bilateral RP
[2021-05-29] MEDS ORDERED: LIDOCAINE 1% INJ 10MG/ML (20 ML MDV) ONE (10:55)
[2021-05-29] MEDS ORDERED: fentaNYL (PF) 50 MCG/ML 2 ML AMP ONE (10:55)
[2021-05-29] MEDS ORDERED: PROPOFOL 10 MG/ML 20 ML VIAL IV ONE (10:55)
[2021-05-29] MEDS ORDERED: MIDAZOLAM 2 MG/2 ML VIAL ONE (10:55)
[2021-05-29] MEDS ORDERED: SUCCINYLCHOLINE CHLORIDE 100 MG/5 ML SYR IV ONE (10:55)
[2021-05-29] MEDS ORDERED: IOPAMIDOL-370 50ML BTL MISCELLANE ONE (11:29)
[2021-05-29 11:51] VITALS: TEMP 96.9
[2021-05-29 12:38] VITALS: BP 118/80; PULSE 95; RESP 16
--- NOTE | 2021-05-29 12:52 | P.OP ---
Date of Procedure: 05/29/21 Preoperative Diagnosis: Gross hematuria Postoperative Diagnosis: Same Procedure(s) Performed: Cystoscopy, bilateral retrograde pyelogram Implants: None Anesthesia: ARIELA Surgeon: Rahul Sánchez Estimated Blood Loss (ml): 1 Pathology: none sent Condition: stable Disposition: PACU Indications for Procedure: 25 yo female with hx of gross hematuria and left flank pain, had CT non contrast done which showed no abnormality or stones within the kidney. Discussed option of doing cystoscopy with bilateral RP. discussed risk of bleeding, infection and ureteral injury. discussed if abnormality is seen on cystoscopy then will do a biopsy at that time. Discussed potential need for ureteroscopy also if abnormality is seen on RP. She understood all risk and agreed to procee Operative Findings: Normal bilateral retrograde pyelogram, normal cystoscopy Description of Procedure: Patient was brought to the operating room, general anesthesia was induced. She was prepped and draped in sterile fashion a placement dorsal lithotomy position. A cystoscopy fitted with 22-Estonian sheath was inserted per urethra, cystoscopy was performed showed no abnormality within the bladder. Attention was then carried to the left ureteral orifice which was intubated with a 6-Estonian open- ended catheter, retrograde pyelogram was performed on the left which showed no filling defect or hydronephrosis, delayed images was obtained which showed adequate drainage of contrast. Attention was then carried to the right ureter orifice which was intubated with an open-ended catheter, retrograde pyelogram was performed on that side which showed no filling defect or hydronephrosis, delayed images were obtained which showed adequate drainage of contrast. The bladder was emptied at end of the case. Patient tolerated the procedure well was taken to PACU in stable condition
--- NOTE | 2021-05-29 16:16 | FL ---
Fluoroscopy HISTORY: Check patency 59 seconds fluoroscopy time supplied to the referring clinician. 10 intraoperative images on paper. S ee dictated report from referring physician.
== END 2021-05-29 12:51 | disposition home or self-care (01) ==
LOC: OR 09:40
PROVIDERS: ATTEND Urology
DX: R31.9 Hematuria, unspecified (principal); I10 Essential (primary) hypertension; K21.9 Gastro-esophageal reflux disease without esophagitis; F17.210 Nicotine dependence, cigarettes, uncomplicated; Z87.442 Personal history of urinary calculi; Z79.3 Long term (current) use of hormonal contraceptives; Z91.010 Allergy to peanuts; Z88.0 Allergy status to penicillin; Z91.018 Allergy to other foods; J45.909 Unspecified asthma, uncomplicated
CPT/HCPCS: 81025; 74420; 52005; C1758; J2250; J1100; J2405; J2001; J3010; J0744; J0330; J2704; Q9967

== ENCOUNTER 2023-03-04 14:15 | Emergency (ER) | payer OTHER ==
[2023-03-04 14:24] VITALS: TEMP 97.9
[2023-03-04] MEDS ORDERED: SODIUM CHLORIDE 0.9% 1,000 ML IV STA (14:59)
[2023-03-04] MEDS ORDERED: ONDANSETRON 4 MG/2 ML VIAL IVP STA (15:00)
[2023-03-04] MEDS ORDERED: HYDROmorphone 0.5 MG/0.5 ML SYRINGE IVP STA (15:00)
[2023-03-04 15:22] LABS: Basophils % (A) 0 %; Eosinophils # (A) 0.5 k/uL (0-0.7); Eosinophils % (A) 6 %; HCT 39.3 % (34.0-46.0); HGB 13.3 gm/dL (11.4-16.0); Lymphocytes # (A) 1.8 k/uL (1.0-4.8); Lymphocytes % (A) 19 %; MCHC 33.8 g/dL (31.0-37.0); MCV 94.6 fL (80.0-100.0); Mean Platelet Volume 8.3; Monocytes # (A) 0.5 k/uL (0-1.0); Monocytes % (A) 6 %; Neutrophils # (A) 6.2 k/uL (1.3-7.7); Neutrophils % (A) 68 %; Platelet Count 243 k/uL (150-450); RBC 4.16 m/uL (3.80-5.40); RDW 12.5 % (11.5-15.5); WBC 9.2 k/uL (3.8-10.6)
[2023-03-04 15:33] LABS: ALT 19 U/L (4-34); AST 22 U/L (14-36); African American GFR (CKD) >90 (>60 ml/min/1.73 sqM); Albumin 4.4 g/dL (3.5-5.0); Alkaline Phosphatase 68 U/L (38-126); Anion Gap 9 mmol/L; Blood Urea Nitrogen 9 mg/dL (7-17); Calcium 9.1 mg/dL (8.4-10.2); Carbon Dioxide 24 mmol/L (22-30); Chloride 105 mmol/L (98-107); Glucose 101 mg/dL (74-99); Lipase 202 U/L (23-300); Non-African American GFR(CKD) >90 (>60 ml/min/1.73 sqM); Potassium 4.2 mmol/L (3.5-5.1); Sodium 138 mmol/L (137-145); Total Bilirubin 0.4 mg/dL (0.2-1.3); Total Protein 7.1 g/dL (6.3-8.2)
[2023-03-04 15:38] LABS: Appearance,Urine Cloudy (Clear); Bacteria,Urine Many /hpf; Bilirubin,Urine Negative (Negative); Blood,Urine Large (Negative); Calcium Oxalate Crystals,Urine Few /hpf; Color,Urine Yellow; Glucose,Urine (UA) Negative (Negative); Hyaline Casts,Urine 6 /lpf (0-2); Ketones,Urine Negative (Negative); Leukocyte Esterase,Urine Negative (Negative); Mucus,Urine Many /hpf; Nitrite,Urine Negative (Negative); PH, Urine 5.5 (5.0-8.0); Protein,Urine 1+ (Negative); RBC,Urine >182 /hpf (0-5); Specific Gravity,Urine 1.033 (1.001-1.035); Squamous Epithelial Cell,Urine 6 /hpf (0-4); WBC,Urine 15 /hpf (0-5)
--- NOTE | 2023-03-04 16:08 | CT ---
EXAMINATION TYPE: CT abdomen pelvis wo con DATE OF EXAM: 03/04/2023 HISTORY: LUQ pain CT DLP: 374 mGycm. Automated Exposure Control for Dose Reduction was Utilized. TECHNIQUE: CT scan of the abdomen and pelvis is performed without oral or IV contrast. COMPARISON: NONE FINDINGS: Within the limitations of a non-contrast study, the following observations are made. LUNG BASES: No significant abnormality is appreciated. LIVER/GB: No significant abnormality is appreciated. PANCREAS: No significant abnormality is seen. SPLEEN: No significant abnormality is seen. ADRENALS: No significant abnormality is seen. KIDNEYS: No renal calculi or hydronephrosis is seen bilaterally. BOWEL: Suboptimal evaluation of bowel without enteric contrast and patient having little intra-abdomi nal fat. Low-lying cecum into the right pelvis anteriorly is present. No suspicious small or large sujatha wel dilatation. GENITAL ORGANS: Scattered tiny pelvic calcified phleboliths.. LYMPH NODES: No greater than 1cm abdominal or pelvic lymph nodes are appreciated. There is some left- sided vasa prominence suspected. OSSEOUS STRUCTURES: No significant abnormality is seen. OTHER: No significant additional abnormality is seen. IMPRESSION: No renal stones or hydronephrosis is seen bilaterally. No bowel obstruction. Suboptimal s tudy without IV or enteric contrast. Suggestion of left-sided vasa engorgement raises concern for ent eritis. Correlate clinically. Follow-up is advised.
[2023-03-04] MEDS ORDERED: metroNIDAZOLE 500 MG TAB PO STA (16:43)
[2023-03-04] MEDS ORDERED: CIPROFLOXACIN HCL 500 MG TAB PO STA (16:45)
--- NOTE | 2023-03-04 16:58 | ED ---
Abdominal Pain HPI - General Chief Complaint: Abdominal Pain Stated Complaint: lt upper abd pain Time Seen by Provider: 03/04/23 14:52 Source: patient Mode of arrival: ambulatory Limitations: no limitations - History of Present Illness Initial Comments: Patient is a 27-year-old female presents to the emergency department for abdominal pain. Patient reports abrupt onset of pain in her left and middle upper abdomen. She denies back pain. She reports nausea without vomiting. No fever or chills. No burning with urination, blood in the urine, vaginal discharge, vaginal bleeding. Patient just got over a sinus infection. She denies throat pain, headache. No recent alcohol use. - Related Data Home Medications Medication Instructions Recorded Confirmed Acetaminophen Tab [Tylenol Tab] 1,000 mg PO Q6H PRN 03/04/23 03/04/23 busPIRone HCl [Buspar] 10 mg PO BID PRN 03/04/23 03/04/23 busPIRone HCl [Buspar] 10 mg PO HS 03/04/23 03/04/23 Previous Rx's Medication Instructions Recorded Ciprofloxacin HCl [Cipro] 500 mg PO Q12HR #10 tablet 03/04/23 Ibuprofen [Motrin] 400 mg PO Q6H PRN #30 tab 03/04/23 Ondansetron Odt [Zofran Odt] 4 mg PO Q8HR PRN #10 tab 03/04/23 metroNIDAZOLE [Flagyl] 500 mg PO TID #15 tab 03/04/23 Allergies Allergy/AdvReac Type Severity Reaction Status Date / Time peanut Allergy Severe Anaphylaxis Verified 03/04/23 16:02 amoxicillin Allergy Rash/Hives Verified 03/04/23 16:02 gluten Allergy Rash/Hives Verified 03/04/23 16:02 Penicillins Allergy Rash/Hives Verified 03/04/23 16:02 Review of Systems ROS Statement: Those systems with pertinent positive or pertinent negative responses have been documented in the HPI. ROS Other: All systems not noted in ROS Statement are negative. Past Medical History Past Medical History: No Reported History History of Any Multi-Drug Resistant Organisms: None Reported Past Surgical History: Section Past Psychological History: Anxiety, Depression Smoking Status: Current every day smoker Past Alcohol Use History: None Reported Past Drug Use History: Marijuana General Exam Limitations: no limitations General appearance: alert, in no apparent distress Head exam: Present: atraumatic, normocephalic, normal inspection Eye exam: Present: normal appearance, PERRL, EOMI. Absent: scleral icterus, conjunctival injection, periorbital swelling Respiratory exam: Present: normal lung sounds bilaterally. Absent: respiratory distress, wheezes, rales, rhonchi, stridor Cardiovascular Exam: Present: regular rate, normal rhythm, normal heart sounds. Absent: systolic murmur, diastolic murmur, rubs, gallop, clicks GI/Abdominal exam: Present: soft, tenderness (LUQ), normal bowel sounds. Absent: distended, guarding, rebound, rigid Neurological exam: Present: alert, oriented X3, CN II-XII intact Psychiatric exam: Present: normal affect, normal mood Skin exam: Present: warm, dry, intact, normal color. Absent: rash Course Vital Signs 03/04/23 03/04/23 03/04/23 14:21 14:24 17:01 Temperature 97.9 F Pulse Rate 102 H 70 78 Respiratory 16 20 16 Rate Blood Pressure 141/74 110/60 120/83 O2 Sat by Pulse 100 98 98 Oximetry Medical Decision Making - Medical Decision Making Was pt. sent in by a medical professional or institution (, PA, HEAD PACKAGER, urgent care, hospital, or fci...) When possible be specific @ -No Did you speak to anyone other than the patient for history (EMS, parent, family, police, friend...)? What history was obtained from this source @ -No Did you review nursing and triage notes (agree or disagree)? Why? @ -I reviewed and agree with nursing and triage notes Were old charts reviewed (outside hosp., previous admission, EMS record, old EKG, old radiological studies, urgent care reports/EKG's, fci records)? Report findings @ -No old charts were reviewed Differential Diagnosis (chest pain, altered mental status, abdominal pain women, abdominal pain men, vaginal bleeding, weakness, fever, dyspnea, syncope, head ache, dizziness, GI bleed, back pain, seizure, CVA, palpatations, mental health)? @ -Differential Abdominal Pain Women: Appendicitis, Cholecystitis, diverticulosis, ischemic bowel, pancreatitis, hepatitis, UTI, gastroenteritis, AAA, incarcerated hernia, bowel obstruction, constipation, inflammatory bowel, hepatitis, peptic ulcer disease, splenic infarction, perforated viscus, vulvitis, ovarian torsion, PID, kidney stone, placenta abruption, this is not meant to be an all-inclusive list EKG interpreted by me (3pts min.). @ -As above X-rays interpreted by me (1pt min.). @ -None done CT interpreted by me (1pt min.). @ -Yes, CT of the abdomen and pelvis is concerning for enteritis U/S interpreted by me (1pt. min.). @ -None done What testing was considered but not performed or refused? (CT, X-rays, U/S, labs)? Why? @ -None What meds were considered but not given or refused? Why? @ -None Did you discuss the management of the patient with other professionals (professionals i.e. , PA, HEAD PACKAGER, lab, RT, psych nurse, social worker assistant, disc sander, teacher, aviation tactical readiness officer, director of casework department)? Give summary @ -No Was smoking cessation discussed for >3mins.? @ -No Was critical care preformed (if so, how long)? @ -No Were there social determinants of health that impacted care today? How? (Homelessness, low income, unemployed, alcoholism, drug addiction, transportation, low edu. Level, literacy, decrease access to med. care, senior care, rehab)? @ -No Was there de-escalation of care discussed even if they declined (Discuss DNR or withdrawal of care, Hospice)? DNR status @ -No What co-morbidities impacted this encounter? (DM, HTN, Smoking, COPD, CAD, Can cer, CVA, ARF, Chemo, Hep., AIDS, mental health diagnosis, sleep apnea, morbid obesity)? @ -None Was patient admitted / discharged? Hospital course, mention meds given and route, prescriptions, significant lab abnormalities, going to OR and other pertinent info. @ -Patient presenting with abdominal pain. Due to tenderness on exam I did obt ain CT of the abdomen and pelvis which shows concerning for enteritis. There is no leukocytosis. Urinalysis does reveal gross hematuria which patient states is chronic for her. Results discussed with patient. Symptoms likely due to viral etiology however with significant pain I will treat for possible bacterial origin. Patient to follow-up with primary care provider Undiagnosed new problem with uncertain prognosis? @ -No Drug Therapy requiring intensive monitoring for toxicity (Heparin, Nitro, Insulin, Cardizem)? @ -No Were any procedures done? @ -No Diagnosis/symptom? @ -Abdominal pain, nausea Acute, or Chronic, or Acute on Chronic? @ -Acute Uncomplicated (without systemic symptoms) or Complicated (systemic symptoms)? @ -default Side effects of treatment? @ -No Exacerbation, Progression, or Severe Exacerbation? @ -No Poses a threat to life or bodily function? How? (Chest pain, [place], [place], pneumonia, PE, COPD, DKA, ARF, appy, cholecystitis, CVA, Diverticulitis, Homicidal, Suicidal, threat to staff... and all critical care pts) @ -No Dr. Ray is my attending - Lab Data Result diagrams: 03/04/23 14:59 03/04/23 14:59 Lab Results 03/04/23 03/04/23 03/04/23 Range/Units 14:59 14:59 14:59 WBC 9.2 (3.8-10.6) k/uL RBC 4.16 (3.80-5.40) m/uL Hgb 13.3 (11.4-16.0) gm/dL Hct 39.3 (34.0-46.0) % MCV 94.6 (80.0-100.0) fL MCH 32.0 (25.0-35.0) pg MCHC 33.8 (31.0-37.0) g/dL RDW 12.5 (11.5-15.5) % Plt Count 243 (150-450) k/uL MPV 8.3 Neutrophils % 68 % Lymphocytes % 19 % Monocytes % 6 % Eosinophils % 6 % Basophils % 0 % Neutrophils # 6.2 (1.3-7.7) k/uL Lymphocytes # 1.8 (1.0-4.8) k/uL Monocytes # 0.5 (0-1.0) k/uL Eosinophils # 0.5 (0-0.7) k/uL Basophils # 0.0 (0-0.2) k/uL Sodium 138 (137-145) mmol/L Potassium 4.2 (3.5-5.1) mmol/L Chloride 105 (98-107) mmol/L Carbon Dioxide 24 (22-30) mmol/L Anion Gap 9 mmol/L BUN 9 (7-17) mg/dL Creatinine 0.60 (0.52-1.04) mg/dL Est GFR (CKD-EPI)AfAm >90 (>60 ml/min/1.73 sqM) Est GFR (CKD-EPI)NonAf >90 (>60 ml/min/1.73 sqM) Glucose 101 H (74-99) mg/dL Plasma Lactic Acid [place] (0.7-2.0) mmol/L Calcium 9.1 (8.4-10.2) mg/dL Total Bilirubin 0.4 (0.2-1.3) mg/dL AST 22 (14-36) U/L ALT 19 (4-34) U/L Alkaline Phosphatase 68 (38-126) U/L Total Protein 7.1 (6.3-8.2) g/dL Albumin 4.4 (3.5-5.0) g/dL Lipase 202 (23-300) U/L Urine Color Yellow Urine Appearance Cloudy H (Clear) Urine pH 5.5 (5.0-8.0) Ur Specific [place] 1.033 (1.001-1.035) Urine Protein 1+ H (Negative) Urine Glucose (UA) Negative (Negative) Urine Ketones Negative (Negative) Urine Blood Large H (Negative) Urine Nitrite Negative (Negative) Urine Bilirubin Negative (Negative) Urine Urobilinogen 2.0 (<2.0) mg/dL Ur Leukocyte Esterase Negative (Negative) Urine RBC >182 H (0-5) /hpf Urine WBC 15 H (0-5) /hpf Ur Squamous Epith Cells 6 H (0-4) /hpf Calcium Oxalate Crystal Few H (None) /hpf Urine Bacteria Many H (None) /hpf Hyaline Casts 6 H (0-2) /lpf Urine Mucus Many H (None) /hpf Urine HCG, Qual (Not Detectd) 03/04/23 03/04/23 Range/Units 14:59 15:00 WBC (3.8-10.6) k/uL RBC (3.80-5.40) m/uL Hgb (11.4-16.0) gm/dL Hct (34.0-46.0) % MCV (80.0-100.0) fL MCH (25.0-35.0) pg MCHC (31.0-37.0) g/dL RDW (11.5-15.5) % Plt Count (150-450) k/uL MPV Neutrophils % % Lymphocytes % % Monocytes % % Eosinophils % % Basophils % % Neutrophils # (1.3-7.7) k/uL Lymphocytes # (1.0-4.8) k/uL Monocytes # (0-1.0) k/uL Eosinophils # (0-0.7) k/uL Basophils # (0-0.2) k/uL Sodium (137-145) mmol/L Potassium (3.5-5.1) mmol/L Chloride (98-107) mmol/L Carbon Dioxide (22-30) mmol/L Anion Gap mmol/L BUN (7-17) mg/dL Creatinine (0.52-1.04) mg/dL Est GFR (CKD-EPI)AfAm (>60 ml/min/1.73 sqM) Est GFR (CKD-EPI)NonAf (>60 ml/min/1.73 sqM) Glucose (74-99) mg/dL Plasma Lactic Acid [place] 0.7 (0.7-2.0) mmol/L Calcium (8.4-10.2) mg/dL Total Bilirubin (0.2-1.3) mg/dL AST (14-36) U/L ALT (4-34) U/L Alkaline Phosphatase (38-126) U/L Total Protein (6.3-8.2) g/dL Albumin (3.5-5.0) g/dL Lipase (23-300) U/L Urine Color Urine Appearance (Clear) Urine pH (5.0-8.0) Ur Specific [place] (1.001-1.035) Urine Protein (Negative) Urine Glucose (UA) (Negative) Urine Ketones (Negative) Urine Blood (Negative) Urine Nitrite (Negative) Urine Bilirubin (Negative) Urine Urobilinogen (<2.0) mg/dL Ur Leukocyte Esterase (Negative) Urine RBC (0-5) /hpf Urine WBC (0-5) /hpf Ur Squamous Epith Cells (0-4) /hpf Calcium Oxalate Crystal (None) /hpf Urine Bacteria (None) /hpf Hyaline Casts (0-2) /lpf Urine Mucus (None) /hpf Urine HCG, Qual Not Detected (Not Detectd) Disposition Clinical Impression: Abdominal pain, Nausea Disposition: HOME SELF-CARE Condition: Good Instructions (If sedation given, give patient instructions): Abdominal Pain (ED) Additional Instructions: Take medication as directed. Do not drink alcohol with taking Flagyl as aching cause major stomach upset. Follow-up with primary care provider in one to 2 days. Return to the emergency department if you experience new, concerning, or worsening symptoms. Prescriptions: Ciprofloxacin HCl [Cipro] 500 mg PO Q12HR #10 tablet metroNIDAZOLE [Flagyl] 500 mg PO TID #15 tab Ibuprofen [Motrin] 400 mg PO Q6H PRN #30 tab PRN Reason: Pain Ondansetron Odt [Zofran Odt] 4 mg PO Q8HR PRN #10 tab PRN Reason: Nausea Is patient prescribed a controlled substance at d/c from ED?: No Referrals: Oliver Lundy MD [Primary Care Provider] - 1-2 days Time of Disposition: 16:57
[2023-03-04 17:02] VITALS: BP 120/83; PULSE 78; RESP 16
== END 2023-03-04 17:15 | disposition home or self-care (01) ==
LOC: EC 14:15
DX: R10.12 Left upper quadrant pain (principal); R11.0 Nausea; F12.90 Cannabis use, unspecified, uncomplicated; F17.200 Nicotine dependence, unspecified, uncomplicated; F41.9 Anxiety disorder, unspecified; Z88.0 Allergy status to penicillin; Z88.1 Allergy status to other antibiotic agents; Z91.010 Allergy to peanuts; Z79.899 Other long term (current) drug therapy
CPT/HCPCS: 36415; 80053; 83605; 83690; 85025; 81001; 81025; 87086; 74176; 99284; 96374; 96375; 96361; J2405; J1170

== ENCOUNTER → 2023-04-23 | Outpatient (CLI) | payer BC, OTHER | END | disposition home or self-care (01) | LOC: LABWHC1 10:10 | PROVIDERS: ATTEND Nurse Practitioner Family | DX: R10.9 Unspecified abdominal pain (principal) | CPT/HCPCS: 36415; 83516; 85652; 86140 ==

== ENCOUNTER 2024-06-14 07:59 | Inpatient (IN) | payer BC, OTHER ==
[2024-06-07 13:27] VITALS: BMI 28.2
[2024-06-14] MEDS: LACTATED RINGERS 1,000 ML IV ONE (08:20)
[2024-06-14] MEDS ORDERED: TRANEXAMIC 1,000 MG/100ML-NACL 1,000 MG in EMPTY BAG 1 BAG IV PRN (08:21)
[2024-06-14] MEDS ORDERED: miSOPROStoL 200 MCG TAB PO PRN (08:21)
[2024-06-14] MEDS ORDERED: OXYTOCIN 10 UNIT/ML 1 ML VIAL IM PRN (08:21)
[2024-06-14] MEDS ORDERED: METHYLERGONOVINE 0.2 MG/ML 1 ML AMP IM PRN (08:21)
[2024-06-14] MEDS ORDERED: CARBOPROST TROMETHAMINE 250 MCG/ML 1 ML AMP IM PRN (08:21)
[2024-06-14 08:34] LABS: Basophils # (A) 0.1 k/uL (0-0.2); Basophils % (A) 0 %; Eosinophils # (A) 0.2 k/uL (0-0.7); Eosinophils % (A) 1 %; HCT 37.1 % (34.0-46.0); HGB 12.5 gm/dL (11.4-16.0); Lymphocytes # (A) 1.9 k/uL (1.0-4.8); Lymphocytes % (A) 13 %; MCH 32.6 pg (25.0-35.0); MCHC 33.6 g/dL (31.0-37.0); Mean Platelet Volume 10.2; Monocytes # (A) 1.2 k/uL (0-1.0); Monocytes % (A) 8 %; Neutrophils # (A) 11.3 k/uL (1.3-7.7); Neutrophils % (A) 76 %; Platelet Count 227 k/uL (150-450); RBC 3.82 m/uL (3.80-5.40); RDW 12.9 % (11.5-15.5); WBC 14.9 k/uL (3.8-10.6)
[2024-06-14] MEDS: CITRIC ACID-SODIUM CITRATE 15 ML CUP PO ONE (09:29)
--- NOTE | 2024-06-14 09:39 | P.HPOB ---
History of Present Illness H&P Date: 06/14/24 Chief Complaint: 39-1/7 weeks, previous section, requesting repeat The patient is a 28-year-old 2 para 0-1-0-1 admitted at 39-1/7 weeks as established by last menstrual period and confirmed by 12-week ultrasound. She is admitted for repeat low-transverse section with all signs reassuring, category 1 heart rate tracing. She has a history of a previous with another father that developed early preeclampsia leading to a 32-week delivery by section. This has been entirely uncomplicated and group B strep status is negative. Obstetrical history: 2 para 0-1-0-1 with 132-week delivery secondary to preeclampsia. Current statistics are listed in history of present illness. EDC of 06/20/2024 was established by last menstrual period and confirmed by 12-week ultrasound. Laboratory workup demonstrates a blood type of AB+ with a negative antibody screen. Rubella status is immune. The remainder of the laboratory workup was within normal limits. 1 hour Glucola was normal and group B strep status is negative. Gynecologic history: Unremarkable with no history of any infections to include STDs. Review of Systems Review of systems is confined to history of present illness. Past Medical History Past Medical History: No Reported History, Asthma, COPD, GERD/Reflux Additional Past Medical History / Comment(s): Pre-eclampsia with first 9 years ago. History of Any Multi-Drug Resistant Organisms: None Reported Past Surgical History: Section Additional Past Surgical History / Comment(s): Scope to bladder. Past Anesthesia/Blood Transfusion Reactions: No Reported Reaction Additional Past Anesthesia/Blood Transfusion Reaction / Comment(s): No hx of blood transfusion. Past Psychological History: Anxiety, Depression Additional Psychological History / Comment(s): hx of medication Smoking Status: Current every day smoker Past Alcohol Use History: None Reported Additional Past Alcohol Use History / Comment(s): Started smoking at 13 years old and quit at 28 years old. Haven't smonked in 6 months. Past Drug Use History: Marijuana Additional Drug Use History / Comment(s): Smokes Marijuana. No Marijuana use 24 hrs before procedure. - Past Family History Father Family Medical History: Deep Vein Thrombosis (DVT), Hypertension Additional Family Medical History / Comment(s): Lt knee. Medications and Allergies Home Medications Medication Instructions Recorded Confirmed Type Aspirin [Adult Low Dose Aspirin EC] 81 mg PO QAM 05/22/24 06/14/24 History No.167/Folic Acid/Dha 1 tab PO QAM 05/22/24 06/14/24 History [One-A-Day Gummy] EPINEPHrine (Auto Inject) [Epipen] 0.3 mg IM ONCE PRN 06/07/24 06/14/24 History Allergies Allergy/AdvReac Type Severity Reaction Status Date / Time peanut Allergy Severe Anaphylaxis Verified 06/14/24 08:20 amoxicillin Allergy Rash/Hives Verified 06/14/24 08:20 Penicillins Allergy Rash/Hives Verified 06/14/24 08:20 Exam Vital Signs Temp Pulse Resp BP Pulse Ox 06/14/24 08:50 97.6 F 80 17 142/92 97 Intake and Output 06/13/24 06/14/24 06/14/24 22:59 06:59 14:59 Other: Weight 79.379 kg In general, this is a well-developed, well-nourished white female in no acute distress. Her heart has a regular rhythm and rate without murmur. Her lungs are clear to auscultation bilaterally in all lazo. Her abdomen is gravid, nondistended, has normal active bowel sounds, soft, nontender, and without any palpable masses aside from the uterine fundus. Her extremities are without any cyanosis, clubbing, or edema and are nontender to palpation bilaterally. Digital cervical examination is deferred. Results Result Diagrams: 06/14/24 08:21 Abnormal Lab Results - Last 24 Hours (Table) 06/14/24 Range/Units 08:21 WBC 14.9 H (3.8-10.6) k/uL Neutrophils # 11.3 H (1.3-7.7) k/uL Monocytes # 1.2 H (0-1.0) k/uL Assessment and Plan (1) Term Current Visit: Yes Status: Acute Code(s): Z34.90 - ENCNTR FOR SUPRVSN OF NORMAL , UNSP, UNSP TRIMESTER SNOMED Code(s): 41220186 Plan: The patient is admitted for repeat low-transverse section. The risks and complications of the procedure been thoroughly discussed and she has understood and agreed to proceed.
[2024-06-14] MEDS ORDERED: NALBUPHINE 10 MG/ML (10 ML MDV) ONE (09:57)
[2024-06-14] MEDS ORDERED: ONDANSETRON 4 MG/2 ML VIAL ONE (09:57)
[2024-06-14] MEDS ORDERED: KETOROLAC 15 MG/ML 1 ML VIAL ONE (09:57)
[2024-06-14] MEDS ORDERED: MORPHINE SULFATE (PF) 0.3 MG/0.3 ML SYR ONE (09:57)
[2024-06-14] MEDS ORDERED: LANOLIN CREAM 1 GM TUBE TOPICAL PRN (10:42)
[2024-06-14] MEDS ORDERED: diphenhydrAMINE 50 MG CAP PO PRN (10:42)
[2024-06-14] MEDS ORDERED: SIMETHICONE 80 MG CHEWABLE PO PRN (10:42)
[2024-06-14] MEDS ORDERED: diphenhydrAMINE 25 MG CAP PO PRN (10:42)
[2024-06-14] MEDS ORDERED: diphenhydrAMINE 50 MG/ML 1 ML VIAL IVP PRN ×2 (10:42)
[2024-06-14] MEDS ORDERED: ONDANSETRON 4 MG/2 ML VIAL IVP PRN (10:42)
[2024-06-14] MEDS ORDERED: ZOLPIDEM 5 MG TAB PO PRN (10:42)
[2024-06-14] MEDS ORDERED: METOCLOPRAMIDE 5 MG/ML 2 ML VIAL IVP PRN (10:42)
[2024-06-14] MEDS ORDERED: NALOXONE 0.4 MG/ML 1 ML VIAL IV PRN (10:42)
[2024-06-14] MEDS ORDERED: OXYTOCIN 30 UNITS/500 ML NS 30 UNIT in SALINE 1 500ML.BAG IV SCH (10:45)
--- NOTE | 2024-06-14 10:50 | P.OP ---
Date of Procedure: 06/14/24 Preoperative Diagnosis: #1. 39+ weeks, previous section, requesting repeat Postoperative Diagnosis: Same Procedure(s) Performed: #1. Repeat low-transverse section Anesthesia: spinal Surgeon: Leonard Toro Body Press Operator #1: Kerri Goddard Estimated Blood Loss (ml): 389 IV fluids (ml): 900 Urine output (ml): 50 Pathology: other (Placenta) Condition: stable Disposition: floor Operative Findings: Was taken to the operating room where she was delivered of a viable 6 pound 12 ounce baby boy with Apgars of 9 at 1 minute and 9 at 5 minutes. The placenta was delivered manually, intact, and grossly normal though it was circumvallate in nature. There was a grossly normal slightly velamentously-inserted three- vessel cord approximately 3 cm from the margin of the placental disc. The u terus, tubes, and ovaries were entirely normal to inspection. There was no significant degree of scarring anywhere throughout the abdomen. [place] were used to close the incision in order to best reapproximate the patient's tattoo which required the incision to run through it. Description of Procedure: The patient was prepped and draped in usual fashion after spinal anesthesia was administered by the anesthesiologist. A Pfannenstiel incision was made through pre-existing scar and extended into the abdominal cavity without difficulty. The bladder peritoneum was noted to be somewhat high on the lower uterine segment and therefore was elevated, incised, and reflected distally. A 2 cm incision was made in the lower uterine segment in the transverse plane to enter the uterus at which time clear fluid was noted. The incision was extended in both directions using the bandage scissors. The head was encountered fairly deep in the pelvis for the patient not being in labor. It was elevated up and through the incision where the nose and mouth were thoroughly suctioned. There was a loose nuchal cord which was reduced prior to delivery of the infant. The remainder of the infant was delivered onto the field where the cord was doubly clamped, cut, and the infant passed for resuscitative measures with weight and Apgars as noted above. Dental was delivered manually and intact as noted above. The uterus was exteriorized and the anterior cavity swept of any remaining placental or membranous fragments. The margins of the uterine incision were grasped with Ortega clamps. There was noted to be a small laceration towards the cervix at the right ankle which was closed by simply incorporating it into the closure. The incision was closed with 2 stitches, the first being a running locking stitch of 0 chromic catgut followed by a running imbricating stitch of 0 chromic catgut, each from margin to margin. Hemostasis appeared to be excellent. The posterior cul-de-sac was suctioned with a guard and the uterine and ovarian findings were normal as noted above. The uterus was replaced within the abdominal cavity and the gutters swept of any remaining blood, fluid, or clot. Reexamination of the uterine incision demonstrated excellent hemostasis. The parietal peritoneum was loosely reapproximated and the layer of muscles examined and found to be hemostatic. The fascia was closed with a single running stitch of 0 Vicryl proceeding from margin to margin. The subcutaneous tissues were very thin and therefore not reapproximated. They were irrigated and made hemostatic with the Bovie. The skin was reapproximated with surgical nancy as noted above in order to best reapproximate the lines of the patient's tattoo through which the incision had to be made. Quantitative blood loss for the case was 389 mL. There were no complications. All sponge, instrument, and needle counts were correct. The patient tolerated the procedure well and proceeded to the recovery room in stable condition. Both mother and infant are resting comfortably in recovery.
[2024-06-14 11:57] LABS: Cocaine Screen,Urine Not Detected (NotDetected); Opiate Screen,Urine Not Detected (NotDetected); Phencyclidine Screen,Urine Not Detected (NotDetected); Urn Cannabinoid Scrn Detected (NotDetected)
[2024-06-14 11:58] LABS: Amphetamine Screen,Urine Not Detected (NotDetected); Barbiturate Screen,Urine Not Detected (NotDetected); Benzodiazepines Screen,Urine Not Detected (NotDetected); Methadone Screen, Urine Not Detected (NotDetected); Oxycodone Screen, Urine Not Detected (NotDetected); Tricyclic Antidepressant,Urine Not Detected (NotDetected)
[2024-06-14] MEDS: ACETAMINOPHEN TAB 500 MG TAB PO SCH (13:37)
[2024-06-14] MEDS: LACTATED RINGERS 1,000 ML IV SCH (13:39)
[2024-06-14] MEDS: KETOROLAC 15 MG/ML 1 ML VIAL IVP PRN (17:05)
[2024-06-14] MEDS: IBUPROFEN 600 MG TAB PO SCH (17:11)
[2024-06-14] MEDS: SENNOSIDES-DOCUSATE SODIUM 1 EACH TAB PO SCH (21:35)
[2024-06-15 05:59] LABS: Basophils % (A) 0 %; Eosinophils # (A) 0.1 k/uL (0-0.7); Eosinophils % (A) 1 %; HCT 32.3 % (34.0-46.0); HGB 10.4 gm/dL (11.4-16.0); Lymphocytes # (A) 1.4 k/uL (1.0-4.8); Lymphocytes % (A) 12 %; MCHC 32.3 g/dL (31.0-37.0); MCV 99.2 fL (80.0-100.0); Mean Platelet Volume 9.4; Monocytes # (A) 0.9 k/uL (0-1.0); Monocytes % (A) 9 %; Neutrophils # (A) 8.5 k/uL (1.3-7.7); Neutrophils % (A) 77 %; Platelet Count 182 k/uL (150-450); RBC 3.25 m/uL (3.80-5.40); RDW 12.8 % (11.5-15.5); WBC 11.1 k/uL (3.8-10.6)
--- NOTE | 2024-06-15 10:46 | P.PN ---
Progress Note - Text Progress Note Date: 06/15/24 Anesthesia Postop day 1 Subjective: Status Post section with Duramorph. Patient seen and examined. Doing well without complaint. VAS 2/10. No nausea or vomiting or pruritus . Afebrile. Gross lower extremity strength intact. Without apparent anesthetic complications. Objective: Vital signs reviewed Heart: Regular Rate Lungs: Good chest excursion Abdomen: Appears nondistended Assessment: Status post with Duramorph postop day 1 Plan: Continue current care with your medical management. Anticipated and the Duramorph section around time today. You may see increased pain needs around this time.
--- NOTE | 2024-06-15 12:39 | P.PNOBGPC ---
Subjective - Subjective Principal diagnosis: s/p repeat Interval history: The patient is doing well this morning and had no acute events overnight. She has no complaints this morning. She reports minimal lochia, passing flatus, voiding without difficulty, ambulating, and eating/drinking without nausea or vomiting. She is her without difficulty. She denies chest pain, shortness of breathing, fevers, or chills overnight. She denies pain or swelling in the legs. Patient reports: Reports appetite normal, Reports voiding normally, Reports pain well controlled, Reports ambulating normally : doing well Objective - Vital Signs Latest vital signs: Vital Signs Temp Pulse Resp BP Pulse Ox 06/15/24 07:30 98.1 F 69 18 114/69 06/14/24 23:52 97.7 F 73 16 103/57 98 06/14/24 23:00 73 16 06/14/24 20:00 97.6 F 73 18 131/77 97 06/14/24 15:28 97.5 F L 61 17 128/76 98 06/14/24 12:41 96.2 F L 60 17 130/72 97 Intake and Output 06/14/24 06/15/24 06/15/24 22:59 06:59 14:59 Output Total 150 400 Balance -150 -400 Output: Urine 150 400 Uretheral (Bass) 150 Other: Voiding Method Indwelling Catheter # Voids 0 0 - Exam Extremities: Present: normal Abdomen: Present: normal appearance, soft Incision: Present: normal, dry, intact, other (nancy) Uterus: Present: normal, firm - Labs Labs: Abnormal Lab Results - Last 24 Hours (Table) 06/15/24 Range/Units 05:01 WBC 11.1 H (3.8-10.6) k/uL RBC 3.25 L (3.80-5.40) m/uL Hgb 10.4 L (11.4-16.0) gm/dL Hct 32.3 L (34.0-46.0) % Neutrophils # 8.5 H (1.3-7.7) k/uL Assessment and Plan Assessment: 28 year old now POD#1 s/p repeat Plan: 1. Postoperative. Patient meeting all postoperative milestones appropriately. 2. Viable female . Doing well, in nursery for temperature instability. Dispo: Anticipate discharge home on POD#2-4 depending on 's course
--- NOTE | 2024-06-16 09:31 | P.PNOBGPC ---
Subjective - Subjective Principal diagnosis: Status post repeat low transverse Interval history: Patient seen and examined. She denies nausea, vomiting, chest pain, shortness of breath or calf pain. The baby is in the nursery so the patient would like to stay one more night. Patient reports: Reports appetite normal, Reports voiding normally, Reports pain well controlled, Reports ambulating normally Mobile: doing well Objective - Vital Signs Latest vital signs: Vital Signs Temp Pulse Resp BP BP Pulse Ox 06/16/24 08:00 98.2 F 66 16 113/74 06/15/24 23:40 98.5 F 91 16 119/74 97 06/15/24 16:00 98.1 F 68 16 109/68 Intake and Output 06/15/24 06/16/24 06/16/24 22:59 06:59 14:59 Intake Total 300 Balance 300 Intake: Oral 300 Other: Voiding Method Indwelling Catheter # Voids 1 # Bowel Movements 1 - Exam Lungs: bilateral: normal Chest: Normal S1, Normal S2 Extremities: Present: normal Abdomen: Present: normal appearance, soft. Absent: distention, tenderness Incision: Present: normal, dry, intact Uterus: Present: normal, firm Assessment and Plan (1) S/P section Current Visit: Yes Status: Acute Code(s): Z98.891 - HISTORY OF UTERINE SCAR FROM PREVIOUS SURGERY SNOMED Code(s): 385808074 Plan: 1. Continue postoperative care
[2024-06-17 08:15] VITALS: BP 126/77; PULSE 86; RESP 14; TEMP 97.5
--- NOTE | 2024-06-17 12:03 | P.DS ---
Providers Date of admission: 06/14/24 07:59 Expected date of discharge: 06/17/24 Attending physician: Leonard Toro Primary care physician: Naila Martin NPC - Discharge Diagnosis(es) (1) S/P section Current Visit: Yes Status: Acute Hospital Course: She presented for repeat low transverse . She underwent this without complication. Patient denies nausea, vomiting, chest pain, shortness of breath or calf pain. Patient will be discharged home postoperative day #3 in stable condition to follow-up in 2 weeks Plan - Discharge Summary Discharge Rx Participant: No New Discharge Prescriptions: New Ibuprofen [Motrin] 600 mg PO Q6H #30 tab No Action EPINEPHrine (Auto Inject) [Epipen] 0.3 mg IM ONCE PRN PRN Reason: Anaphylaxis Aspirin [Adult Low Dose Aspirin EC] 81 mg PO QAM No.167/Folic Acid/Dha [One-A-Day Gummy] 1 tab PO QAM Discharge Medication List Aspirin [Adult Low Dose Aspirin EC] 81 mg PO QAM 05/22/24 [History] No.167/Folic Acid/Dha [One-A-Day Gummy] 1 tab PO QAM 05/22/24 [History] EPINEPHrine (Auto Inject) [Epipen] 0.3 mg IM ONCE PRN 06/07/24 [History] Ibuprofen [Motrin] 600 mg PO Q6H #30 tab 06/17/24 [Rx] Follow up Appointment(s)/Referral(s): Leonard Toro MD [STAFF PHYSICIAN] - 2 Weeks Discharge Disposition: HOME SELF-CARE
== END 2024-06-17 13:00 | disposition home or self-care (01) | DRG 540 ==
LOC: 4FBP 07:59
PROVIDERS: ADMIT Obstetrics & Gynecology; ATTEND Obstetrics & Gynecology
PROC: 10D00Z1 Extraction of Products of Conception, Low, Open Approach (ICD-10-PCS; principal; 2024-06-14 10:00)
DX: O34.211 Maternal care for low transverse scar from previous cesarean delivery (principal); O69.81X0 Labor and delivery complicated by cord around neck, without compression, not applicable or unspecified; Z37.0 Single live birth; Z3A.39 39 weeks gestation of pregnancy; O99.344 Other mental disorders complicating childbirth; F32.A Depression, unspecified; F41.9 Anxiety disorder, unspecified; Z79.82 Long term (current) use of aspirin; Z79.899 Other long term (current) drug therapy; Z87.891 Personal history of nicotine dependence
CPT/HCPCS: 80306; 85025; 86850; 86900; 86901; 88307